=== PATIENT | male | born 1990 | race African-American/Black ===

== ENCOUNTER 2017-06-22 16:56 | Emergency (ER) | payer SELFPAY ==
[2017-06-22 17:04] VITALS: BP 115/87; PULSE 54; TEMP 98.2; BMI 25.7
[2017-06-22] MEDS ORDERED: LIDOCAINE HCL 2% JELLY 10 ML CARTRIDGE ONE (19:13)
[2017-06-22] MEDS ORDERED: LIDOCAINE HCL 2% JELLY 10 ML CARTRIDGE PR STA (19:15)
--- NOTE | 2017-06-22 19:15 | PDOC ---
History of Present Illness - General History Source: Patient Exam Limitations: No Limitations - History of Present Illness Initial Comments: 06/22/17 19:15 Patient is a 26 year old male with no pmhx who presents to the ED rectal pain and fever. Patient states that he developed rectal pain last night and a fever. He notes that he took 500 mg of naproxen 500 mg last night and took an epsom salt bath before going to bed which allowed him to sleep through the night because the pain subsided. Patient notes that the pain came back in the morning. He describes the pain as tingling burning sensation that is exacerbated with sitting and alleviated by bowel movements. He denies any hematochezia or visible blood on tissue after whipping. <Ebony Huitron - Last Filed: 06/22/17 19:15> <Summer Barrera - Last Filed: 06/22/17 19:37> - General Chief Complaint: Abscess Boil Stated Complaint: ABSCESS BOIL Time Seen by Provider: 06/22/17 18:26 Past History <Ebony Huitron - Last Filed: 06/22/17 19:15> - Past Medical History Asthma: Yes - Surgical History Appendectomy: Yes (2013) - Immunization History Immunization Up to Date: Yes - Psycho/Social/Smoking Cessation Hx Suicidal Ideation: No Smoking Status: Yes Smoking History: Current every day smoker Number of Cigarettes Smoked Daily: 2 Information on smoking cessation initiated: No Hx Alcohol Use: No Drug/Substance Use Hx: Yes (MARIJUANA) Substance Use Type: Marijuana <Summer Barrera - Last Filed: 06/22/17 19:37> - Past Medical History Allergies/Adverse Reactions: Allergies Allergy/AdvReac Type Severity Reaction Status Date / Time shellfish derived Allergy Severe Difficulty Verified 06/22/17 17:00 Breathing Home Medications: Ambulatory Orders No Home Medications 0 dose .ROUTE UTDICT 10/18/12 Ondansetron [Zofran *Odt*] 8 mg SL TID PRN #14 od.tablet 10/18/12 Docusate Sodium [Colace -] 100 mg PO BID #14 capsule 06/22/17 Hydrocortisone Acetate [Anusol Hc Suppository -] 25 mg RC DAILY #14 supp.rect Review of Systems - Review of Systems Comments:: 06/22/17 19:16 CONSTITUTIONAL: Absent: fever, chills, diaphoresis, generalized weakness, malaise, loss of appetite HEENT: Absent: rhinorrhea, nasal congestion, throat pain, throat swelling, difficulty swallowing, mouth swelling, ear pain, eye pain, visual Changes CARDIOVASCULAR: Absent: chest pain, syncope, palpitations, irregular heart rate, lightheadedness , peripheral edema RESPIRATORY: Absent: cough, shortness of breath, dyspnea with exertion, orthopnea, wheezing, stridor, hemoptysis GASTROINTESTINAL: Present: +rectal pain Absent: abdominal pain, abdominal distension, nausea, vomiting, diarrhea, constipation, melena, hematochezia GENITOURINARY: Absent: dysuria, frequency, urgency, hesitancy, hematuria, flank pain, genital pain MUSCULOSKELETAL: Absent: myalgia, arthralgia, joint swelling SKIN: Absent: rash, itching, pallor HEMATOLOGIC/IMMUNOLOGIC: Absent: easy bleeding, easy bruising, lymphadenopathy, frequent infections ENDOCRINE: Absent: unexplained weight gain, unexplained weight loss, heat intolerance, cold intolerance NEUROLOGIC: Absent: headache, focal weakness or paresthesias, dizziness, unsteady gait, seizure, mental status changes, bladder or bowel incontinence PSYCHIATRIC: Absent: anxiety, depression, suicidal or homicidal ideation, hallucinations. <Ebony Huitron - Last Filed: 06/22/17 19:15> *Physical Exam - Vital Signs Last Vital Signs Temp Pulse Resp BP Pulse Ox 98.2 F 54 L 14 115/87 97 06/22/17 17:00 06/22/17 17:00 06/22/17 17:00 06/22/17 17:00 06/22/17 17:00 - Physical Exam Comments: 06/22/17 19:17 GENERAL: Well developed, well nourished. Awake and alert. No acute distress. HEENT: Normocephalic, atraumatic. PERRLA, EOMI. No conjunctival pallor. Sclera are non- icteric. Moist mucous membranes. Oropharynx is clear. NECK: Supple. Full ROM. No JVD. Carotid pulses 2+ and symmetric, without bruits. No thyromegaly. No lymphadenopathy. CARDIOVASCULAR: Regular rate and rhythm. No murmurs, rubs, or gallops. Distal pulses are 2+ and symmetric. PULMONARY: No evidence of respiratory distress. Lungs clear to auscultation bilaterally. No wheezing, rales or rhonchi. ABDOMINAL: Soft. Non-tender. Non-distended. No rebound or guarding. No organomegaly. Normoactive bowel sounds. MUSCULOSKELETAL Normal range of motion at all joints. No bony deformities or tenderness. No CVA tenderness. EXTREMITIES: No cyanosis. No clubbing. No edema. No calf tenderness. SKIN: Warm and dry. Normal capillary refill. No rashes. No jaundice. NEUROLOGICAL: Alert, awake, appropriate. Cranial nerves 2-12 intact. PSYCHIATRIC: Cooperative. Good eye contact. Appropriate mood and affect. RECTAL EXAM: (+) at 10 oclock is a grape sized 2.5 cm hemorrhoid, not thrombosed, arising from anal singh, No area of induration, no erythema <Ebony Huitron - Last Filed: 06/22/17 19:15> - Vital Signs Last Vital Signs Temp Pulse Resp BP Pulse Ox 98.2 F 54 L 14 115/87 97 06/22/17 17:00 06/22/17 17:00 06/22/17 17:00 06/22/17 17:00 06/22/17 17:00 <Summer Barrera - Last Filed: 06/22/17 19:37> Medical Decision Making - Medical Decision Making 06/22/17 19:21 26 yo male with nonsignificant PMH p/w a large nonthrombosed hemorrhoid c/o itching and burning rectal pain -no surrounding erythema ,no induration of the area -2.5 grape sized external hemorrhoid plan anusol suppository/colae/surgical referral if no relief <Summer Barrera - Last Filed: 06/22/17 19:37> *DC/Admit/Observation/Transfer - Attestations Scribe Attestion: 06/22/17 19:18 Documentation prepared by MELA Torres, acting as medical service technician for Summer Barrera MD. <Ebony Huitron - Last Filed: 06/22/17 19:15> <Summer Barrera - Last Filed: 06/22/17 19:37> Diagnosis at time of Disposition: External hemorrhoids - Discharge Dispostion Disposition: HOME Condition at time of disposition: Stable - Prescriptions Prescriptions: Hydrocortisone Acetate [Anusol Hc Suppository -] 25 mg RC DAILY #14 supp.rect Docusate Sodium [Colace -] 100 mg PO BID #14 capsule - Referrals Referrals: Sai Lara MD [Primary Care Provider] - Ruiz Covarrubias MD [Staff Physician] - - Patient Instructions Printed Discharge Instructions: DI for Hemorrhoids Additional Instructions: please diamond picker your prescription medications at [facility] follow up with your regular physician If you have worsening symptoms,return to the emergency department
[2017-06-22] MEDS ORDERED: HYDROCORTISONE ACETATE 25 MG/SUPP.RECT PR ONE (19:20)
== END 2017-06-22 20:06 | disposition home or self-care (01) ==
LOC: JERFT 16:56 → JER 16:56
DX: K64.4 Residual hemorrhoidal skin tags (principal); F17.210 Nicotine dependence, cigarettes, uncomplicated
CPT/HCPCS: 99282-25

== ENCOUNTER 2017-06-25 14:07 | Emergency (ER) | payer SELFPAY ==
[2017-06-25 14:12] VITALS: BP 109/75; PULSE 68; TEMP 98; BMI 21.1
--- NOTE | 2017-06-25 15:48 | PDOC ---
History of Present Illness - General Chief Complaint: Bleeding from Anus Stated Complaint: REVISIT Time Seen by Provider: 06/25/17 15:08 History Source: Patient Exam Limitations: No Limitations - History of Present Illness Initial Comments: 06/25/17 16:04 CC rectal bleeding x this am; seen here yesterday for external hemorrhoid Past History - Past Medical History Allergies/Adverse Reactions: Allergies Allergy/AdvReac Type Severity Reaction Status Date / Time shellfish derived Allergy Severe Difficulty Verified 06/25/17 14:09 Breathing Home Medications: Ambulatory Orders Docusate Sodium [Colace -] 100 mg PO BID #14 capsule 06/22/17 Hydrocortisone Acetate [Anusol Hc Suppository -] 25 mg RC DAILY #14 supp.rect Asthma: Yes - Surgical History Appendectomy: Yes (2013) - Immunization History Immunization Up to Date: Yes - Psycho/Social/Smoking Cessation Hx Anxiety: No Suicidal Ideation: No Smoking Status: Yes Smoking History: Current every day smoker Have you smoked in the past 12 months: Yes Number of Cigarettes Smoked Daily: 2 Information on smoking cessation initiated: No Hx Alcohol Use: No Drug/Substance Use Hx: No Substance Use Type: Marijuana Review of Systems - Review of Systems Constitutional: No: Symptoms Reported, Chills, Fever HEENTM: No: Symptoms Reported Respiratory: No: Symptoms reported Cardiac (ROS): No: Symptoms Reported ABD/GI: Yes: Rectal Bleeding. No: Diarrhea, Nausea, Poor Fluid Intake, Vomiting , Abdominal cramping *Physical Exam - Vital Signs Last Vital Signs Temp Pulse Resp BP Pulse Ox 98 F 68 18 109/75 100 06/25/17 14:09 06/25/17 14:09 06/25/17 14:09 06/25/17 14:09 06/25/17 14:09 - Physical Exam General Appearance: Yes: Appropriately Dressed, Apparent Distress HEENT: positive: TMs Normal, Pharynx Normal Neck: positive: Supple. negative: Rigid Respiratory/Chest: positive: Lungs Clear Rectal Exam: positive: hemorrhoids (small amt of hemorrhoid bleed; clots expressed with remove; no excessive bleed noted) Medical Decision Making - Medical Decision Making 06/25/17 16:07 told to use sitz baths; and anusol as directed; and Follow with Dr Covarrubias *DC/Admit/Observation/Transfer Diagnosis at time of Disposition: Rectal bleed - Discharge Dispostion Disposition: HOME Condition at time of disposition: Stable Admit: No - Referrals Referrals: Ruiz Covarrubias MD [Staff Physician] - - Patient Instructions Additional Instructions: Please see Dr Covarrubias if symptoms return; sitz bath a suggested; change diet - Post Discharge Activity Work/School Note: Back to Work
== END 2017-06-25 16:14 | disposition home or self-care (01) ==
LOC: JERFT 14:07
DX: K62.5 Hemorrhage of anus and rectum (principal); Z72.0 Tobacco use
CPT/HCPCS: 99281-25

== ENCOUNTER 2021-03-26 20:28 | Emergency (ER) | payer OTHER ==
[2021-03-26 20:45] VITALS: BP 126/81; PULSE 99; TEMP 98.7; BMI 42.1
[2021-03-26] MEDS ORDERED: FAMOTIDINE 20 MG/50 ML IVPB 20 MG/50 ML MG IVPB ONE ×2 (21:29→21:33)
[2021-03-26] MEDS ORDERED: ONDANSETRON 4 MG/2 ML VIAL IVPB ONE (21:29)
[2021-03-26] MEDS ORDERED: SODIUM CHLORIDE 1,000 ML IV STA (21:29)
[2021-03-26 21:52] LABS: BASO % 0.2 % (0-2.0); EOS % 0.9 % (0-4.5); HEMATOCRIT 47.5 % (35.4-49); HEMOGLOBIN 15.8 GM/dL (11.7-16.9); LYMPH % 28.5 % (8-40); MCH 29.1 pg (25.7-33.7); MCHC 33.3 g/dl (32.0-35.9); MEAN CELL VOLUME 87.2 fl (80-96); MEAN PLT VOLUME 7.7 fl (7.5-11.1); MONO % 10.2 % (3.8-10.2); NEUT % 60.2 % (42.8-82.8); PLATELET COUNT 259 K/MM3 (134-434); RBC 5.44 M/mm3 (4.00-5.60); RDW 13.6 % (11.9-15.9); WHITE BLOOD COUNT 4.3 K/mm3 (4.0-10.0)
[2021-03-26 22:11] LABS: BLOOD UREA NITROGEN 11.8 mg/dL (7-18); CALCIUM 8.8 mg/dL (8.5-10.1)
[2021-03-26 22:14] LABS: CREATININE 1.2 mg/dL (0.55-1.3)
[2021-03-26 22:16] LABS: BILIRUBIN,TOTAL 0.5 mg/dL (0.2-1); TOT PROT 8.5 g/dl (6.4-8.2)
[2021-03-26 22:57] LABS: URINE APPEARANCE CLEAR; URINE BILIRUBIN NEGATIVE (NEGATIVE); URINE COLOR YELLOW; URINE GLUCOSE (UA) NEGATIVE (NEGATIVE); URINE KETONE NEGATIVE (NEGATIVE); URINE LEUK ESTERASE NEGATIVE (NEGATIVE); URINE NITRITE NEGATIVE (NEGATIVE); URINE PROTEIN NEGATIVE (NEGATIVE); URINE UROBILINOGEN 0.2 mg/dL (0.2-1.0)
== END 2021-03-26 23:23 | disposition home or self-care (01) ==
LOC: JER 20:28
PROC: 3E033NZ Introduction of Analgesics, Hypnotics, Sedatives into Peripheral Vein, Percutaneous Approach (ICD-10-PCS; principal; 2021-03-26)
PROC: 3E033GC Introduction of Other Therapeutic Substance into Peripheral Vein, Percutaneous Approach (ICD-10-PCS; 2021-03-26)
PROC: 3E0337Z Introduction of Electrolytic and Water Balance Substance into Peripheral Vein, Percutaneous Approach (ICD-10-PCS; 2021-03-26)
DX: K52.9 Noninfective gastroenteritis and colitis, unspecified (principal)
CPT/HCPCS: 36415; 80053; 81003; 83690; 85025; 99285-25